=== PATIENT | male | born 2000 | race Caucasian/White ===

== ENCOUNTER 2022-04-09 05:17 | Emergency (ER) | payer BC ==
[~2022-04-09] VITALS: Ht 177.8 cm; Wt 126.9 kg
[2022-04-09 08:25] VITALS: BP 145/80
== END 2022-04-09 08:26 | disposition home or self-care (01) ==
LOC: M ED 05:17
DX: U07.1 COVID-19 (principal)

== ENCOUNTER → 2022-06-03 | Outpatient (REF) | payer BC ==
[2022-06-03 18:32] LABS: APPEARANCE, URINE MANUAL CLEAR (CLEAR); BILIRUBIN, URINE MANUAL NEGATIVE (NEGATIVE); COLOR, URINE MANUAL YELLOW (YELLOW); GLUCOSE, URINE (UA) MANUAL NEGATIVE (NEGATIVE); KETONE, URINE MANUAL NEGATIVE (NEGATIVE); LEUKOCYTE ESTERASE, URINE MAN TRACE (NEGATIVE); NITRITE, URINE MANUAL NEGATIVE (NEGATIVE); PROTEIN, URINE MANUAL NEGATIVE (NEGATIVE); UROBILINOGEN, URINE MANUAL NORMAL (NORMAL)
[2022-06-03 18:33] LABS: BLOOD URINE MANUAL TRACE (NEGATIVE)
[2022-06-03 18:58] LABS: WBC, URINE 30-40 /hpf (0-3)
[2022-06-03 18:59] LABS: CALCIUM OXALATE CRYSTALS,URINE SMALL AMOUNT /hpf
[2022-06-03 19:00] LABS: BACTERIA, URINE SMALL AMOUNT; MUCUS, URINE MOD AMOUNT (NEGATIVE); SQUAMOUS EPITHELIAL CELL URINE SMALL AMOUNT /hpf (SMALL AMT)
== END ==
LOC: M LAB REF 17:56
PROVIDERS: ATTEND Physician Assistant Medical
DX: N39.0 Urinary tract infection, site not specified (principal)